=== PATIENT | female | born 1940 | race Caucasian/White ===

== ENCOUNTER 2018-01-18 12:12 | Inpatient (IN) ==
--- NOTE | 2018-01-18 12:28 | P.HPUP ---
The Pre-Admit History and Physical Examination regarding the above named patient was reviewed (including, but not limited to, vital signs, heart, lungs, co-morbid conditions), and upon re-examination it is noted that: the patient's condition has not significantly changed since the last examination.
[2018-01-18] MEDS ORDERED: ceFAZolin 1 GM Premix Inj 1 GM/50 ML FROZ.PIGGY IV.SIG ONE (13:12)
[2018-01-18] MEDS ORDERED: Phenylephrine/NS 1000 MCG/10ML Syringe IV.PUSH ONE (13:35)
[2018-01-18] MEDS ORDERED: Sodium Chlor 0.9% Inj 500 ML IV.CONT ONE (13:45)
[2018-01-18] MEDS ORDERED: Metoprolol Tartrate 25 MG Tablet PO ONE (13:45)
[2018-01-18] MEDS ORDERED: Dextrose 5%/NaCl 0.9% Inj 1,000 ML IV.SIG SCH (13:45)
[2018-01-18] MEDS ORDERED: Chlorhexidine Gluconate 2% 1 Pack (2 Cloths) TOPICAL ONE (13:45)
[2018-01-18] MEDS ORDERED: ceFAZolin 1 GM Premix Inj 1 GM/50 ML FROZ.PIGGY IV.SIG SCH (14:00)
[2018-01-18] MEDS ORDERED: Bupivacaine 0.5% Inj 50 ML MDV Vial ONE (14:09)
[2018-01-18] MEDS ORDERED: fentaNYL Citrate Inj 100 MCG/2 ML Ampul ONE (14:59)
[2018-01-18] MEDS ORDERED: Sugammadex Inj 200 MG/2 ML Vial IV.PUSH ONE (15:03)
[2018-01-18] MEDS ORDERED: Ketorolac Inj 30 MG/ML (IVP) Vial IV.PUSH PRN (15:17)
[2018-01-18] MEDS ORDERED: Acetaminophen 325 MG Tablet PO PRN (15:17)
[2018-01-18] MEDS ORDERED: Potassium Chlor 20 mEq Premix 20 MEQ/100 ML PIGGYBACK IV.SIG PRN ×2 (15:17→17:08)
[2018-01-18] MEDS ORDERED: Potassium Chlor 40 mEq Premix 40 MEQ/100 ML PIGGYBACK IV.SIG PRN (15:17)
[2018-01-18] MEDS ORDERED: Naloxone Inj 0.4 MG/ML Vial IV.PUSH PRN ×2 (15:17→15:19)
[2018-01-18] MEDS ORDERED: Naloxone Inj 0.4 MG/ML Vial ONE (15:19)
[2018-01-18] MEDS ORDERED: Morphine Inj 30 MG/30 ML PCA.VIAL PCA ONE (15:30)
[2018-01-18] MEDS ORDERED: KCL 20 mEq/D5W/NaCl 0.9% Inj 1,000 ML ONE (15:30)
[2018-01-18] MEDS: Morphine Inj 30 MG/30 ML PCA.VIAL PCA PRN (16:00)
[2018-01-18] MEDS ORDERED: *morphine SULFATE 10 MG/ML PERIprocedure ONLY ONE (16:14)
--- NOTE | 2018-01-18 17:38 | ECG ---
Date Performed: 01/18/2018 Time Performed: 13:20:05 PTAGE: 77 years EKG: Sinus rhythm INCOMPLETE RIGHT BUNDLE BRANCH BLOCK BORDERLINE ECG NO PREVIOUS TRACING DOCTOR: Dash Herrera Interpretating Date/Time 01/18/2018 17:36:55
[2018-01-18] MEDS: KCL 20 mEq/D5W/NaCl 0.9% Inj 1,000 ML IV.CONT SCH ×3 (18:00→22:45)
[2018-01-18] MEDS: ceFAZolin 1 GM Premix Inj 1 GM/50 ML IV.SIG SCH (20:10)
[2018-01-18] MEDS ORDERED: ZINC EACH EYE SCH (21:00)
[2018-01-18] MEDS ORDERED: TETRAHYDROZOLINE EACH EYE SCH (21:00)
[2018-01-19] MEDS: ceFAZolin 1 GM Premix Inj 1 GM/50 ML IV.SIG SCH ×2 (02:02→10:44)
[2018-01-19 04:55] LABS: Baso % (Auto) 0.1 % (0.0-2.0); Hematocrit 42.2 % (35.0-46.0); Hemoglobin 13.6 gm/dL (11.6-15.3); Lymph # (Auto) 0.3 th/mm3 (1.0-4.8); Lymph % (Auto) 2.9 % (9.0-44.0); Mean Corpuscular HGB Conc 32.1 % (32.0-36.0); Mean Corpuscular Hemoglobin 29.3 pg (27.0-34.0); Mean Corpuscular Volume 91.2 fL (80.0-100.0); Mean Platelet Volume 8.8 fL (7.0-11.0); Mono # (Auto) 0.6 th/mm3 (0.0-0.9); Mono % (Auto) 6.4 % (0.0-8.0); Neut # (Auto) 8.7 th/mm3 (1.8-7.7); Neut % (Auto) 90.6 % (16.0-70.0); Platelet Count 208 th/mm3 (150-450); Red Blood Count 4.63 mil/mm3 (4.00-5.30); Red Cell Distribution Width 14.4 % (11.6-17.2); White Blood Count 9.6 th/mm3 (4.0-11.0)
[2018-01-19] MEDS: Levothyroxine 75 MCG Tablet PO SCH (05:35)
[2018-01-19] MEDS: KCL 20 mEq/D5W/NaCl 0.9% Inj 1,000 ML IV.CONT SCH ×4 (05:38→23:37)
[2018-01-19 05:40] LABS: Anion Gap 6 meq/L (5-15); Blood Urea Nitrogen 8 mg/dL (7-18); Calcium 8.1 mg/dL (8.5-10.1); Carbon Dioxide 29.1 meq/L (21.0-32.0); Chloride 106 meq/L (98-107); Glomerular Filtration Rate Greater Than 89 mL/min (>89); Glucose,Random 173 mg/dL (74-106); Potassium 4.2 meq/L (3.5-5.1); Sodium 141 meq/L (136-145)
[2018-01-19] MEDS: Pantoprazole Inj 40 MG Vial IV.PUSH SCH (10:46)
[2018-01-19] MEDS: Morphine Inj 30 MG/30 ML PCA.VIAL PCA PRN (19:47)
--- NOTE | 2018-01-19 21:42 | P.PNCS ---
Subjective Colorectal Surgery Post Op Day #: 1 Interval history: afebrile, VSS UO good comfortable Objective Result Diagrams: 01/19/18 04:19 01/19/18 04:19 Objective Remarks: PE alert Abd - soft, flat, wound dry Assessment and Plan - Plan Imp: stable post-op OOB decr IVF tx to floor
[2018-01-20 04:58] LABS: Baso % (Auto) 0.2 % (0.0-2.0); Eos % (Auto) 0.1 % (0.0-4.0); Hemoglobin 14.1 gm/dL (11.6-15.3); Lymph # (Auto) 0.6 th/mm3 (1.0-4.8); Lymph % (Auto) 5.4 % (9.0-44.0); Mean Corpuscular HGB Conc 32.7 % (32.0-36.0); Mean Corpuscular Hemoglobin 29.4 pg (27.0-34.0); Mean Corpuscular Volume 89.9 fL (80.0-100.0); Mean Platelet Volume 9.1 fL (7.0-11.0); Mono % (Auto) 9.5 % (0.0-8.0); Neut # (Auto) 8.9 th/mm3 (1.8-7.7); Neut % (Auto) 84.8 % (16.0-70.0); Platelet Count 195 th/mm3 (150-450); Red Blood Count 4.78 mil/mm3 (4.00-5.30); Red Cell Distribution Width 14.2 % (11.6-17.2); White Blood Count 10.5 th/mm3 (4.0-11.0)
[2018-01-20] MEDS: Levothyroxine 75 MCG Tablet PO SCH (05:16)
[2018-01-20 05:32] LABS: Anion Gap 4 meq/L (5-15); Blood Urea Nitrogen 4 mg/dL (7-18); Calcium 8.6 mg/dL (8.5-10.1); Carbon Dioxide 32.7 meq/L (21.0-32.0); Chloride 105 meq/L (98-107); Glomerular Filtration Rate Greater Than 89 mL/min (>89); Glucose,Random 126 mg/dL (74-106); Potassium 3.8 meq/L (3.5-5.1); Sodium 142 meq/L (136-145)
[2018-01-20] MEDS: KCL 20 mEq/D5W/NaCl 0.9% Inj 1,000 ML IV.CONT SCH ×2 (05:50→15:32)
[2018-01-20] MEDS: Pantoprazole Inj 40 MG Vial IV.PUSH SCH (09:05)
--- NOTE | 2018-01-20 22:11 | P.PNCS ---
Subjective Colorectal Surgery Post Op Day #: 2 Interval history: afebrile, VSS UO good c/o nausea +BM Objective Result Diagrams: 01/20/18 04:11 01/20/18 04:11 Objective Remarks: PE alert Abd - soft, flat, wound dry, no tympany Assessment and Plan - Plan Imp: OOB decr IVF tx to floor try PO
[2018-01-21] MEDS: KCL 20 mEq/D5W/NaCl 0.9% Inj 1,000 ML IV.CONT SCH ×2 (04:00→21:38)
[2018-01-21] MEDS: Levothyroxine 75 MCG Tablet PO SCH (05:19)
[2018-01-21] MEDS: Pantoprazole Inj 40 MG Vial IV.PUSH SCH (10:00)
[2018-01-22] MEDS: Levothyroxine 75 MCG Tablet PO SCH (05:54)
[2018-01-22] MEDS: Pantoprazole Inj 40 MG Vial IV.PUSH SCH (08:41)
[2018-01-22] MEDS: KCL 20 mEq/D5W/NaCl 0.9% Inj 1,000 ML IV.CONT SCH (13:13)
--- NOTE | 2018-01-22 21:00 | MP ---
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 PROCEDURE: Exploratory laparotomy with ascending colectomy. POSTOPERATIVE DIAGNOSIS: Sessile tumor of the ascending colon. PROCEDURE: Exploratory laparotomy with ascending colectomy. SURGEON: Pantera Hastings MD SENIOR WINDOWS ENGINEER: Parminder Puckett MD DESCRIPTION OF PROCEDURE: The patient was placed in the supine position. After adequate general anesthesia, her abdomen was prepped with Betadine solution and draped in the usual sterile fashion. With Dr. Puckett's assistance, the abdomen was opened through a transverse incision, dividing the rectus muscles with electrocautery. There were fairly few adhesions to the previous paramedian incision and these were taken down with sharp dissection. Exploration revealed a somewhat redundant floppy cecum with a palpable tumor in the ascending colon. There was no sign of any serosal puckering. The remainder of the colon appeared to be pretty unremarkable. The liver and gallbladder were unremarkable. The stomach and duodenum were normal. Great vessels were of normal caliber and fairly soft. First, the right colon was mobilized medially by dividing along the white line of Toldt. The right ureter was identified and carefully preserved. Dissection then proceeded up the right gutter, taking down attachments to the hepatic flexure into the lesser sac, taking the gastrocolic omentum off the transverse colon. The bowel was then divided in the right side of the transverse colon and the terminal ileum using the BLANCA stapling device. The intervening mesentery taken between Madai's, obtaining hemostasis with Vicryl ties. Bowel continuity was then restored by firing the GI stapler across the antimesenteric ends of the bowel, closing the enterotomy with a TA 60 stapler. Mesenteric defect closed with a running Vicryl suture and a 3-0 Vicryl crotch suture was placed as well. The abdomen was then irrigated copiously with normal saline. Adequate hemostasis achieved at all sites. The transverse incision was closed anatomically in 2 layers using #1 PDS sutures to reapproximate the respective fascial layers. ON-Q catheters were placed into the rectus sheath on both sides and brought out through subcutaneous tunnels above the transverse incision. The subcutaneous tissues were irrigated copiously and the skin closed with a running subcuticular Vicryl suture. Wound area washed with normal saline and dried, sterile dressing of Telfa and gauze applied. The patient tolerated the procedure quite well and was brought to the recovery room in stable condition. Sponge and needle counts were correct at the end of the procedure. MD ALOK Simpson/suzi , 08:45 PM , 08:52 PM
[2018-01-23] MEDS: KCL 20 mEq/D5W/NaCl 0.9% Inj 1,000 ML IV.CONT SCH (04:50)
[2018-01-23] MEDS: Levothyroxine 75 MCG Tablet PO SCH (06:37)
[2018-01-23] MEDS: Pantoprazole Inj 40 MG Vial IV.PUSH SCH (09:42)
[2018-01-23 15:44] VITALS: PULSE 71
[2018-01-23 16:06] VITALS: BP 159/79; RESP 19; TEMP 99.1
[2018-01-23 18:48] VITALS: O2SAT 91
--- NOTE | 2018-01-23 22:21 | P.PNCS ---
Subjective Colorectal Surgery Post Op Day #: 5 Interval history: afebrile, VSS UO good off O2 Objective Result Diagrams: 01/20/18 04:11 01/20/18 04:11 Objective Remarks: PE alert chest - clear, shallow insp Abd - soft, flat, wound dry, no tympany Assessment and Plan - Plan Imp: OOB decr IVF - hep lock if off O2, dc plans
== END 2018-01-23 19:44 | disposition home or self-care (01) ==
LOC: HSDI 12:12 → HCPC 21:09 → N07 01-20 16:26
PROVIDERS: ADMIT Colon & Rectal Surgery; ATTEND Colon & Rectal Surgery